=== PATIENT | female | born 1985 | race Two or more races ===

== ENCOUNTER 2017-05-28 13:58 | Emergency (ER) | payer MEDICAID, OTHER ==
[2017-05-28] MEDS ORDERED: NS 1,000 ML IV ONE (15:16)
--- NOTE | 2017-05-28 15:17 | EDPHY ---
H & P Time Seen by Provider: 05/28/17 14:56 HPI/ROS: Chief complaint. Abdominal pain HPI. Patient is a 32-year-old female presents emergency department with low abdominal pain that began about 3:00 a.m.. She went to the dentist yesterday and had 5 cavities filled however otherwise was feeling okay. At 3:00 a.m. she was awakened with pain in the left lower quadrant. It is described as sharp coming in waves. Increased pain with movement and walking. No radiation to her back. Maybe slight left flank pain. No nausea or vomiting or diarrhea. No fever. Possibly could the patient be constipated. No urinary symptoms. No similar symptoms previously or previous abdominal surgery ROS Constitutional. no fever/chills, no weakness Eyes. no problems with vision ENT. no sore throat, no nasal drainage Cardiovascular. no chest pain Respiratory. no shortness of breath, no cough Abdominal. Left lower quadrant abdominal pain . no problems urinating MS. no calf pain/swelling, no neck/back pain, no joint pain Skin. no rash Lymph. no swollen glands Neuro. no headache, no dizziness, no difficulty walking or with speech Past Medical/Surgical History: Past medical history tonsillectomy and ACL surgery Social History: , nonsmoker, no alcohol Smoking Status: Never smoked Physical Exam: General Appearance: Alert pleasant well-developed female mild distress vital signs are stable Eyes: Pupils equal and round no pallor or injection. ENT, Mouth: Mucous membranes are moist. Respiratory: There are no retractions, lungs are clear to auscultation. Cardiovascular: Regular rate and rhythm. Gastrointestinal: Abdomen is soft and tender in the left adnexal area. No masses. Normal bowel sounds Neurological: Awake and alert, sensory and motor exams grossly normal. Skin: Warm and dry, no rashes. Musculoskeletal: Neck is supple nontender. Extremities symmetrical, full range of motion. Psychiatric: Patient is oriented X 3, there is no agitation. Constitutional: Initial Vital Signs Temperature (C) 37.1 C 05/28/17 14:01 Heart Rate 81 05/28/17 14:01 Respiratory Rate 18 05/28/17 14:01 Blood Pressure 115/79 05/28/17 14:01 O2 Sat (%) 93 05/28/17 14:01 O2 Delivery Mode Room Air O2 (L/minute) 2 Allergies/Adverse Reactions: amoxicillin Allergy (Verified 05/28/17 14:00) hydrocodone Allergy (Verified 05/28/17 14:00) Home Medications: Medication Instructions Recorded Controll 10/13/15 oxyCODONE IR [Oxycodone Ir (*)] 5 mg PO Q4-6PRN PRN #10 tab 05/28/17 Medical Decision Making - Diagnostics Imaging Results: Imaging Impressions Pelvic/Renal Ultrasound 05/28/17 15:16 Impression: Normal pelvic ultrasound for age. Findings discussed with Keyon Osborne M.D. at 16:38 hour, 05/28/2017. Abdomen CT 05/28/17 16:52 Impression: 1. Epiploic appendagitis versus omental infarct anterior to the distal descending colon left upper iliac fossa. 2. No CT evidence of appendicitis, abscess or bowel obstruction. Findings discussed with Keyon Osborne M.D. at 18:44 hour, 05/28/2017. Ultrasound reviewed by me and discussed with Dr. Mancini shows no free fluid. Normal uterus. Normal ovaries without evidence of torsion or ovarian cyst CT abdomen pelvis with IV contrast shows epiploic appendagitis. Procedures: IV normal saline ED Course/Re-evaluation: Re-evaluation 4:45 p.m.. Patient is stable. She and I discussed imaging, lab evaluation. She tells me she continues to have pain and worse with lying down. We discussed further imaging and she would like us to perform a CT scan Re-evaluation at 7:30 p.m.. Patient and I discussed imaging results. We discussed treatment plan including criteria for return. She expresses understanding and agreement Differential Diagnosis: I considered ovarian cyst, kidney stone, diverticulitis, pyelonephritis. The patient has epiploic appendagitis seen on CT - Data Points Laboratory Results: Laboratory Results 05/28/17 14:50 05/28/17 14:50 05/28/17 05/28/17 05/28/17 15:37 14:50 14:50 WBC RBC Hgb Hct MCV MCH MCHC RDW Plt Count MPV Neut % (Auto) Lymph % (Auto) Luce % (Auto) Eos % (Auto) Baso % (Auto) Nucleat RBC Rel Count Absolute Neuts (auto) Absolute Lymphs (auto) Absolute Monos (auto) Absolute Eos (auto) Absolute Basos (auto) Absolute Nucleated RBC Immature Gran % Immature Gran # Sodium 141 mEq/L mEq/L (135-145) Potassium 4.3 mEq/L mEq/L (3.5-5.2) Chloride 102 mEq/L mEq/L (97-110) Carbon Dioxide 24 mEq/l mEq/l (22-31) Anion Gap 15 mEq/L mEq/L (8-16) BUN 7 mg/dL mg/dL (7-23) Creatinine 0.7 mg/dL mg/dL (0.6-1.0) Estimated GFR > 60 Glucose 86 mg/dL mg/dL (70-100) Calcium 10.1 mg/dL mg/dL (8.5-10.4) Beta HCG, Qual NEGATIVE Urine Color YELLOW Urine Appearance CLEAR Urine pH 5.0 (5.0-7.5) Ur Specific [place] 1.018 (1.002-1.030) Urine Protein NEGATIVE (NEGATIVE) Urine Ketones NEGATIVE (NEGATIVE) Urine Blood 1+ H (NEGATIVE) Urine Nitrate NEGATIVE (NEGATIVE) Urine Bilirubin NEGATIVE (NEGATIVE) Urine Urobilinogen NEGATIVE EU EU (0.2-1.0) Ur Leukocyte Esterase 1+ H (NEGATIVE) Urine RBC 1-3 /hpf /hpf (0-3) Urine WBC 1-3 /hpf /hpf (0-3) Ur Epithelial Cells TRACE /lpf /lpf (NONE-1+) Urine Mucus TRACE /lpf /lpf (NONE-1+) Urine Glucose NEGATIVE (NEGATIVE) 05/28/17 14:50 WBC 10.80 10^3/uL H 10^3/uL (3.80-9.50) RBC 4.56 10^6/uL 10^6/uL (4.18-5.33) Hgb 13.3 g/dL g/dL (12.6-16.3) Hct 38.1 % % (38.0-47.0) MCV 83.6 fL fL (81.5-99.8) MCH 29.2 pg pg (27.9-34.1) MCHC 34.9 g/dL g/dL (32.4-36.7) RDW 12.9 % % (11.5-15.2) Plt Count 426 10^3/uL H 10^3/uL (150-400) MPV 8.7 fL fL (8.7-11.7) Neut % (Auto) 59.5 % % (39.3-74.2) Lymph % (Auto) 32.9 % % (15.0-45.0) Luce % (Auto) 5.0 % % (4.5-13.0) Eos % (Auto) 1.9 % % (0.6-7.6) Baso % (Auto) 0.3 % % (0.3-1.7) Nucleat RBC Rel Count 0.0 % % (0.0-0.2) Absolute Neuts (auto) 6.43 10^3/uL 10^3/uL (1.70-6.50) Absolute Lymphs (auto) 3.55 10^3/uL H 10^3/uL (1.00-3.00) Absolute Monos (auto) 0.54 10^3/uL 10^3/uL (0.30-0.80) Absolute Eos (auto) 0.21 10^3/uL 10^3/uL (0.03-0.40) Absolute Basos (auto) 0.03 10^3/uL 10^3/uL (0.02-0.10) Absolute Nucleated RBC 0.00 10^3/uL 10^3/uL (0-0.01) Immature Gran % 0.4 % % (0.0-1.1) Immature Gran # 0.04 10^3/uL 10^3/uL (0.00-0.10) Sodium Potassium Chloride Carbon Dioxide Anion Gap BUN Creatinine Estimated GFR Glucose Calcium Beta HCG, Qual Urine Color Urine Appearance Urine pH Ur Specific [place] Urine Protein Urine Ketones Urine Blood Urine Nitrate Urine Bilirubin Urine Urobilinogen Ur Leukocyte Esterase Urine RBC Urine WBC Ur Epithelial Cells Urine Mucus Urine Glucose Medications Given: Discontinued Medications Sodium Chloride (Ns) 1,000 mls @ 0 mls/hr IV EDNOW ONE; Wide Open PRN Reason: Protocol Stop: 05/28/17 15:17 Last Admin: 05/28/17 15:22 Dose: 1,000 mls Morphine Sulfate (Morphine) 2 mg IVP EDNOW ONE Stop: 05/28/17 18:28 Last Admin: 05/28/17 18:30 Dose: 2 mg Departure - Departure Disposition: Home, Routine, Self-Care Clinical Impression: Epiploic appendagitis Condition: Good Instructions: Abdominal Pain (ED) Additional Instructions: You have epiploic appendagitis diagnosed on CT scan. Treatment is ibuprofen 600 mg every 6 hr for 5 days. Hydrocodone in addition for pain if necessary. Return for worsening pain, fever, vomiting. Recheck in 2 days if not improving. Make sure you keep your already scheduled appointment on June 08 Referrals: Vani Joshi MD [Primary Care Provider] - As per Instructions La Tineo MD [Medical Doctor] - 2-3 days, if not improved Prescriptions: oxyCODONE IR [Oxycodone Ir (*)] 5 mg PO Q4-6PRN PRN #10 tab PRN Reason: Pain, Moderate
[2017-05-28 15:21] LABS: PLATELET COUNT 426 10^3/uL (150-400)
[2017-05-28] MEDS ORDERED: IOPAMIDOL (ISOVUE-300) 100 ML BTL ONE (17:35)
[2017-05-28 19:46] VITALS: BP 118/65; PULSE 71; RESP 18; TEMP 98.1; O2SAT 98
== END 2017-05-28 19:46 | disposition home or self-care (01) ==
DX: K65.9 Peritonitis, unspecified (principal); E86.9 Volume depletion, unspecified
CPT/HCPCS: 96374; Q9967